=== PATIENT | female | born 1975 ===

== ENCOUNTER 2017-03-03 20:41 | Emergency (ER) | payer MEDICARE, MEDICAID ==
[2017-03-03 20:44] VITALS: BMI 47.2
[2017-03-03 21:40] LABS: BASO # 0.1 K/uL (0.0-0.2); BASO % 1.5 % (0.0-2.0); EOS # 0.3 K/uL (0.0-0.7); HEMOGLOBIN 11.6 g/dL (12.0-16.0); LYMPH # 2.2 K/uL (1.0-4.3); LYMPH % 22.2 % (20.0-40.0); MEAN CELL VOLUME 78.8 fl (81.0-99.0); MEAN CORPUSCULAR HEMOGLOBIN 26.2 pg (27.0-31.0); MEAN CORPUSCULAR HGB CONC 33.3 g/dL (33.0-37.0); MEAN PLATELET VOLUME 9.6 fl (7.2-11.7); MONO # 0.6 K/uL (0.0-0.8); MONO % 5.8 % (0.0-10.0); NEUT # 6.7 K/uL (1.8-7.0); NEUT % 67.5 % (50.0-75.0); RBC 4.41 Mil/uL (3.80-5.20); RED CELL DISTRIBUTION WIDTH 17.1 % (11.5-14.5); WHITE BLOOD COUNT 9.9 K/uL (4.8-10.8)
[2017-03-03 22:00] LABS: ALB/GLOB RATIO 1.3 (1.0-2.1); ALBUMIN 4.6 g/dL (3.5-5.0); ALT/SGPT 42 U/L (9-52); AST/SGOT 33 U/L (14-36); BLOOD UREA NITROGEN 11 mg/dl (7-17); CALCIUM 9.1 mg/dL (8.4-10.2); GFR AFRICAN-AMERICAN > 60; GFR NON-AFRICAN AMERICAN > 60
[2017-03-03 22:11] LABS: SQUAMOUS EPITHIAL 2 /hpf (0-5); URINE BACTERIA RARE (<OCC); URINE BILIRUBIN NEGATIVE (NEGATIVE); URINE BLOOD NEGATIVE (NEGATIVE); URINE CLARITY CLOUDY (Clear); URINE COLOR STRAW (YELLOW); URINE GLUCOSE (UA) NEG (Normal); URINE LEUKOCYTE ESTERASE MOD Leu/uL (Negative); URINE NITRATE NEGATIVE (NEGATIVE); URINE PROTEIN NEGATIVE (NEGATIVE); URINE UROBILINOGEN 0.2-1.0 mg/dL (0.2-1.0)
[2017-03-03 22:24] LABS: BARBITURATES, UR NEGATIVE (NEGATIVE); BENZODIAZEPINES, UR NEGATIVE (NEGATIVE); OPIATES, UR NEGATIVE (NEGATIVE); PHENCYCLIDINE, UR NEGATIVE (NEGATIVE)
[2017-03-03 23:12] VITALS: BP 133/84; PULSE 89; RESP 18; TEMP 98.6; O2SAT 100
--- NOTE | 2017-03-03 23:17 | ED PDOC ---
HPI: Psych/Substance Abuse Time Seen by Provider: 03/03/17 20:59 Chief Complaint (Nursing): Psychiatric Evaluation Chief Complaint (Provider): Psychiatric Evaluation History Per: Patient, Family (mother) History/Exam Limitations: no limitations Suicide/Self Injury Attempted (Context): None Severity: Moderate Associated Symptoms: denies: Suicidal Thoughts, Suicidal Plan, Other (homicidal ideation, hallucination, visual changes) Additional Complaint(s): 41 year old female with a pertinent medical history of schizophrenia is brought into the ED by EMS for a crisis evaluation. Patient's mother requested EMS to take the patient to the ED for behaving in a bizarre way. Upon arrival, patient denies having any psychiatric complaints, visual changes, hallucinations, suicidal ideation, and homicidal ideation. She admits to having 1-2 drinks of EtOH prior to arrival. PMD: Derrick Nunez MD Past Medical History Reviewed: Historical Data, Nursing Documentation, Vital Signs Vital Signs: Last Vital Signs Temp 98.6 F 03/03/17 23:11 Pulse 89 03/03/17 23:11 Resp 18 03/03/17 23:11 BP 133/84 03/03/17 23:11 Pulse Ox 100 03/03/17 23:11 - Medical History PMH: Schizophrenia Denies: Diabetes, Hepatitis, HIV, HTN, Chronic Kidney Disease, Seizures, Sexually Transmitted Disease - Surgical History Surgical History: No Surg Hx - Family History Family History: States: Unknown Family Hx - Social History Current smoker - smoking cessation education provided: No Alcohol: Occasional Drugs: Denies - Immunization History Hx Tetanus Toxoid Vaccination: No Hx Influenza Vaccination: No Hx Pneumococcal Vaccination: No - Home Medications Home Medications: Ambulatory Orders Medication Instructions Recorded Moxifloxacin Hydrochloride [Avelox] 400 mg PO DAILY #7 tab 04/18/15 Acetaminophen [Tylenol 325mg tab] 650 mg PO Q4 PRN #0 tab 06/24/15 Bacitracin OINT 1 applic TOP BID #0 tube 06/24/15 Benztropine [Cogentin] 0.5 mg PO BID #0 tab 06/24/15 Clindamycin [Cleocin] 300 mg PO Q8 #0 cap 06/24/15 LORazepam [Ativan] 1 mg PO Q8 PRN #0 tab 06/24/15 OLANZapine [Zyprexa] 10 mg PO DAILY #0 tab 06/24/15 clonazePAM [Klonopin] 1 mg PO BID #0 tab 06/24/15 - Allergies Allergies/Adverse Reactions: Allergies Allergy/AdvReac Type Severity Reaction Status Date / Time No Known Allergies Allergy Verified 03/03/17 20:43 Review of Systems ROS Statement: Except As Marked, All Systems Reviewed And Found Negative Psych: Negative for: Psychosis, Suicidal ideation, Other (visual changes, homicidal ideation) Physical Exam - Reviewed Nursing Documentation Reviewed: Yes Vital Signs Reviewed: Yes - Physical Exam Appears: Positive for: Non-toxic, No Acute Distress. Negative for: Well ( disheveled) Head Exam: Positive for: ATRAUMATIC, NORMOCEPHALIC Skin: Positive for: Normal Color, Warm, Dry Eye Exam: Positive for: Normal appearance, EOMI, PERRL ENT: Positive for: Normal ENT Inspection Neck: Positive for: Normal Cardiovascular/Chest: Positive for: Regular Rate, Rhythm Respiratory: Positive for: Normal Breath Sounds. Negative for: Respiratory Distress Gastrointestinal/Abdominal: Positive for: Normal Exam Neurologic/Psych: Positive for: Alert, Oriented (3x) - Laboratory Results Result Diagrams: 03/03/17 21:33 03/03/17 21:33 - ECG O2 Sat by Pulse Oximetry: 100 (RA) Pulse Ox Interpretation: Normal Medical Decision Making Medical Decision Makin:59 Initial impression: 41 year old female in the ED for a crisis evaluation. Initial plan: * crisis evaluation * alcohol serum * CMP * drug screen, urinary * urine * udip * CBC * accucheck * urinalysis * reevaluation 22:40 Labs show no clinical significance. Upon crisis evaluation, patient is diagnosed with schizophrenia. Patient is stable for discharge. Discussed results with patient's mother. Scribe Attestation: Documented by Qian Rebolledo, acting as a scribe for Minh Leong MD. Provider Scribe Attestation: All medical record entries made by the Scribe were at my direction and personally dictated by me. I have reviewed the chart and agree that the record accurately reflects my personal performance of the history, physical exam, medical decision making, and the department course for this patient. I have also personally directed, reviewed, and agree with the discharge instructions and disposition. Disposition - Clinical Impression Clinical Impression: Schizophrenia - Disposition Disposition Time: 22:40 Condition: STABLE Instructions: Schizophrenia (ED) Forms: [employer] (Italian)
== END 2017-03-03 23:17 | disposition home or self-care (01) ==
LOC: H.ER 20:41
DX: F20.9 Schizophrenia, unspecified (principal)
CPT/HCPCS: 80053; 81003; 81025; 82948; 85025; 99283; G0480